=== PATIENT | female | born 1995 | race Two or more races ===

== ENCOUNTER 2020-01-22 14:42 | Emergency (ER) | payer OTHER ==
[2020-01-22 14:55] VITALS: BP 129/88
[2020-01-22] MEDS ORDERED: DEXAMETHASONE SOD PHOS INJ 10 MG/1 ML VIAL IV ONE (14:56)
--- NOTE | 2020-01-22 14:57 | ER Document Report ---
ED Medical Screen (RME) - General Chief Complaint: Swelling Stated Complaint: THROAT SWELLING Time Seen by Provider: 01/22/20 14:50 Mode of Arrival: Ambulatory Information source: Patient Notes: HPI; 24-year-old female past medical history significant for bipolar and anxiety presents the emergency room with complaints of her throat feeling tight for the past 5 days. States is worse when she is lying flat. Is able to swallow but states it is hard to swallow. Is tolerating p.o. food and fluids. No fevers, no shortness of breath, no difficulty breathing. No new medications no new foods no rash. PE: Alert and oriented x3. Mild distress noted. Lungs: Clear to auscultation without rales, rhonchi, wheezes. Heart: Regular rate and rhythm without murmurs, rubs, gallops. No pharyngeal erythema no tonsillar enlargement. No tonsillar exudate. Positive for bilateral anterior cervical lymphadenopathy. I have greeted and performed a rapid initial assessment of this patient. A comp rehensive ED assessment and evaluation of the patient, analysis of test results and completion of the medical decision making process will be conducted by additional ED providers. I have specifically instructed the patient or family members with the patient to immediately return to any nursing staff should anything change in the patient's condition or with their chief complaint. TRAVEL OUTSIDE OF THE [place] IN LAST 30 DAYS: No - Related Data Allergies/Adverse Reactions: No Known Allergies Allergy (Unverified 01/22/20 14:48) Home Medications: buspirone. latuda. lamictal Past Medical History - Social History Chew tobacco use (# tins/day): No Frequency of alcohol use: None Drug Abuse: None Physical Exam - Vital signs Vitals: Temp Pulse Resp BP Pulse Ox 97.9 F 76 20 129/88 H 100 01/22/20 14:47 01/22/20 14:47 01/22/20 14:47 01/22/20 14:47 01/22/20 14:47 Course - Vital Signs Vital signs: Temp Pulse Resp BP Pulse Ox 97.9 F 76 20 129/88 H 100 01/22/20 14:47 01/22/20 14:47 01/22/20 14:47 01/22/20 14:47 01/22/20 14:47
[2020-01-22 15:24] LABS: ABSOLUTE EOSINOPHILS # (AUTO) 0.1 10^3/uL (0.0-0.6); ABSOLUTE LYMPHOCYTES (AUTO) 2.4 10^3/uL (0.5-4.7); ABSOLUTE MONOCYTES (AUTO) 0.5 10^3/uL (0.1-1.4); ABSOLUTE NEUT (AUTO) 3.9 10^3/uL (1.7-8.2); BASOPHILS % (AUTO) 0.4 % (0-2); EOSINOPHILS % (AUTO) 1.6 % (0-6); HEMATOCRIT 39.4 % (36.0-47.0); HEMOGLOBIN 13.6 g/dL (12.0-15.5); LYMPHOCYTES % (AUTO) 34.9 % (13-45); MEAN CORPUSCULAR HEMOGLOBIN 30.2 pg (27.0-33.4); MEAN CORPUSCULAR HGB CONC 34.4 g/dL (32.0-36.0); MEAN CORPUSCULAR VOLUME 88 fl (80-97); MONOCYTES % (AUTO) 6.8 % (3-13); PLATELET COUNT 229 10^3/uL (150-450); RED BLOOD COUNT 4.49 10^6/uL (3.72-5.28); RED CELL DISTRIBUTION WIDTH 13.4 % (11.5-14.0); SEGMENTED NEUTROPHILS % (AUTO) 56.3 % (42-78); TOTAL CELLS COUNTED % (AUTO) 100 %
[2020-01-22 15:41] LABS: ALBUMIN 4.6 g/dL (3.5-5.0); ALKALINE PHOSPHATASE 98 U/L (38-126); ANION GAP 10 (5-19); ASPARTATE AMINO TRANSFERASE 52 U/L (14-36); BILIRUBIN,DIRECT 0.2 mg/dL (0.0-0.4); BILIRUBIN,TOTAL 0.5 mg/dL (0.2-1.3); BLOOD UREA NITROGEN 7 mg/dL (7-20); CALCIUM 9.2 mg/dL (8.4-10.2); CARBON DIOXIDE 23 mmol/L (22-30); CHLORIDE 106 mmol/L (98-107); GLUCOSE 100 mg/dL (75-110); POTASSIUM 3.7 mmol/L (3.6-5.0); TOTAL PROTEIN 8.3 g/dL (6.3-8.2)
--- NOTE | 2020-01-22 16:44 | RADIOLOGY REPORT (SQ) ---
EXAM DESCRIPTION: CT SOFT TISSUE NECK WITH IMAGES COMPLETED DATE/TIME: 01/22/2020 4:26 pm REASON FOR STUDY: dysphagia COMPARISON: None. TECHNIQUE: Post IV contrasted scanning from skull base through lung apices with review of bone, soft tissue and lung windows. Reconstructed coronal and sagittal MPR images reviewed. All images stored on PACS. All CT scanners at this facility use dose modulation, iterative reconstruction, and/or weight based d osing when appropriate to reduce radiation dose to as low as reasonably achievable (ALARA). [facility]: Dose Right [facility]: CareDose [facility]: Dose Right [facility]: Teradose 4D [facility]: EnhanCV CONTRAST TYPE AND DOSE: contrast/concentration: Isovue 350.00 mmol/ml; Total Contrast Delivered: 75. 0 ml; Total Saline Delivered: 45.9 ml RENAL FUNCTION: None required. The patient is less than 50 years old. RADIATION DOSE: CT Rad equipment meets quality standard of care and radiation dose reduction techniq ues were employed. CTDIvol: 12.8 mGy. DLP: 365 mGy-cm. . LIMITATIONS: None. FINDINGS: SKULL BASE: Intact. MAJOR SALIVARY GLANDS: No solid or cystic masses. No inflammatory changes. LYMPHADENOPATHY: No adenopathy. MUCOSAL MASSES OR ASYMMETRY: No mucosal masses or asymmetry. LARYNX/CORDS: No abnormal findings. VASCULAR STRUCTURES: The major vessels are patent. LUNG APICES: Clear. BONES: Intact. THYROID: Normal size. No masses. PARANASAL SINUSES: Clear. OTHER: No other significant finding. IMPRESSION: NO SIGNIFICANT FINDING IN THE SOFT TISSUES OF THE NECK. TECHNICAL DOCUMENTATION: JOB ID: [id number] Quality ID # [id number]: Final reports with documentation of one or more dose reduction techniques (e.g., Au tomated exposure control, adjustment of the mA and/or kV according to patient size, use of iterative reconstruction technique) 2010 [employer]- All Rights Reserved Reading location - IP/workstation name: [email or web address]
--- NOTE | 2020-01-22 17:07 | ER Document Report ---
ED General - General Chief Complaint: Swelling Stated Complaint: THROAT SWELLING Time Seen by Provider: 01/22/20 14:50 Mode of Arrival: Ambulatory Notes: Patient is a 24-year-old healthy -[place] female coming in today chief complaint sensation of fullness in her throat especially when she lays down over the past 2 to 3 days. Patient reports no difficulty with her own secretions. She does not have any recent allergic reaction. She has no skin rash. No tongue or lip swelling. No posterior pharyngeal swelling. He has no history of allergies or anaphylaxis in the past. She does have a history of bipolar disorder and takes medications for anxiety. TRAVEL OUTSIDE OF THE [place] IN LAST 30 DAYS: No - Related Data Allergies/Adverse Reactions: No Known Allergies Allergy (Unverified 01/22/20 14:48) Home Medications: buspirone. latuda. lamictal Past Medical History - General Information source: Patient - Social History Smoking Status: Never Smoker Chew tobacco use (# tins/day): No Frequency of alcohol use: None Drug Abuse: None Family History: Reviewed & Not Pertinent Review of Systems - Review of Systems Notes: Constitutional: No fevers. No chills. EENT: No eye redness. No eye pain. No ear pain. No sore throat. + Fullness of the throat Cardiovascular: No chest pain. No palpitations. Respiratory: No cough. No shortness of breath. No respiratory distress. Gastrointestinal: No abdominal pain. No nausea, vomiting, or diarrhea. Genitourinary: Atraumatic. No lesions. No pain. No discharge. Musculoskeletal: Atraumatic. No swelling. No deformities. Skin: No rash or lesions. Lymphatic: No swollen lymph nodes. Neurologic: No headache. No syncope. Psychiatric: No suicidal or homicidal ideation. Physical Exam - Vital signs Vitals: Temp Pulse Resp BP Pulse Ox 97.9 F 76 20 129/88 H 100 01/22/20 14:47 01/22/20 14:47 01/22/20 14:47 01/22/20 14:47 01/22/20 14:47 - Notes Notes: General: Well-developed, well-nourished. In no acute distress. Non-toxic appearing. Cardiac: Well-perfused. Regular rate and rhythm. No murmurs, rubs, or gallops. Pulmonary: No respiratory distress. No cyanosis. Bilateral lung fiels are clear to auscultation. Abdominal: Non-distended. Non-rigid. Bowels sounds are present in all four quadrants. No guarding or rebound. HEENT: Head is atraumatic. Conjunctivae not reddened. No tearing. PERRL. EOMI. Orbits atraumatic. No periorbital swelling or erythema. Oropharynx is without erythema, swelling, or exudates. Managing secretions well. Neck: Supple. No adenopathy. No meningismus. Dermatologic: Warm with good turgor. No rash. Atraumatic. No evidence of urticaria Chest: Atraumatic. No chest wall tenderness to palpation. Musculoskeletal: Moves all extremities well. No range of motion deficits. no muscular or joint tenderness. No paraspinal muscle tenderness. no midline spinal tenderness or step-off. Genitourinary: Examination deferred Neurologic: No gross neurologic deficits. Psychiatric: Normal mood. Course - Re-evaluation Re-evalutation: 01/22/20 17:06 Patient had lab work and a CT neck soft tissue done prior to being bedded this afternoon. All of this was normal. Patient's exam is normal. Possibly a viral pharyngitis. Suggested the patient continue to treat symptomatically with salt water gargles. - Vital Signs Vital signs: Temp Pulse Resp BP Pulse Ox 97.9 F 76 20 129/88 H 100 01/22/20 14:47 01/22/20 14:47 01/22/20 14:47 01/22/20 14:47 01/22/20 14:47 - Laboratory Result Diagrams: 01/22/20 15:00 01/22/20 15:00 Laboratory results interpreted by me: 01/22/20 15:00 AST 52 H ALT 68 H Total Protein 8.3 H Discharge - Discharge Clinical Impression: Throat fullness Condition: Good Disposition: HOME, SELF-CARE Instructions: Sore Throat ([facility]) Additional Instructions: Gargle salt water several times a day. There is no sign of any swelling or inflammation in your throat. Your exam looks normal. Your lab work looks nor mal. Should your symptoms get worse suddenly, you may return to the emergency department to be rechecked. Otherwise follow-up as an outpatient for routine care Forms: Return to Work
== END 2020-01-22 17:18 | disposition home or self-care (01) ==
LOC: ER 14:42
DX: R09.89 Other specified symptoms and signs involving the circulatory and respiratory systems (principal); F41.9 Anxiety disorder, unspecified; F31.9 Bipolar disorder, unspecified; Z79.899 Other long term (current) drug therapy
CPT/HCPCS: 99285; 96374; 36415; 84703; 85025; 80053; 70491; J1100